=== PATIENT | male | born 1960 | race Two or more races ===

== ENCOUNTER → 2023-01-05 | Outpatient (CLI) | payer OTHER ==
[2023-01-05 09:34] LABS: Anion Gap 7 (5-15); Carbon Dioxide 28 mmol/L (20-30); Chloride 104 mmol/L (98-107); Potassium 4.6 mmol/L (3.5-5.1); Sodium 139 mmol/L (136-145)
[2023-01-05 09:35] LABS: Calcium 9.5 mg/dL (8.5-10.1)
[2023-01-05 09:39] LABS: Glucose 181 mg/dL (74-106)
[2023-01-05 09:40] LABS: BUN/Creatinine Ratio 14.4 (10.0-20.0); Blood Urea Nitrogen 15 mg/dL (9-23)
== END | disposition home or self-care (01) ==
LOC: LAB 09:10
PROVIDERS: ATTEND Family Medicine
DX: E11.65 Type 2 diabetes mellitus with hyperglycemia (principal); E11.9 Type 2 diabetes mellitus without complications
CPT/HCPCS: 36415; 80048; 82043

== ENCOUNTER 2023-06-07 10:08 | Emergency (ER) | payer OTHER, MEDICAID ==
[~2023-06-07] VITALS: Ht 177.8 cm; Wt 86.1 kg
[2023-06-07 11:15] VITALS: BP 124/82; PULSE 89; RESP 16; TEMP 97.8; O2SAT 99
[2023-06-07] MEDS: LACTULOSE 20Gm/30ML SOLN PO ONE (11:40)
[2023-06-07] MEDS ORDERED: DICY10CA PO (12:59)
[2023-06-07] MEDS ORDERED: LACT10SO3 PO (12:59)
== END 2023-06-07 13:14 | disposition home or self-care (01) ==
LOC: ER 10:08
DX: N40.0 Benign prostatic hyperplasia without lower urinary tract symptoms (principal); N28.89 Other specified disorders of kidney and ureter; K59.00 Constipation, unspecified; I10 Essential (primary) hypertension; Z79.899 Other long term (current) drug therapy
CPT/HCPCS: 74176

== ENCOUNTER 2023-06-08 12:45 | Inpatient (IN) | payer OTHER, MEDICAID ==
[~2023-06-08] VITALS: Ht 180.3 cm; Wt 84.0 kg
[~2023-06-08 12:45] MED LIST: DICY10CA PO; LACT10SO3 PO
[2023-06-08 14:23] LABS: Basophils # (auto) 0 10 ^3/uL (0-0.2); Basophils % (auto) 0.2 % (0.0-2.0); Eosinophils # (auto) 0 10 ^3/uL (0-0.8); Eosinophils % (auto) 0.1 % (0.0-7.0); Mean Corpuscular Volume 81.7 fL (80.0-100.0); White Blood Cell 11.3 10^3/uL (4.4-10.8)
[2023-06-08 14:26] LABS: Hematocrit 42.3 % (41.0-53.0); Hemoglobin 13.8 g/dL (13.5-17.5); Lymphocytes # (auto) 1.4 10 ^3/uL (0.4-5.4); Mean Corpuscular Hemoglobin 26.7 pg (28.0-32.0); Mean Corpuscular Hgb Conc. 32.6 g/dL (32.0-36.0); Monocytes # (auto) 0.6 10 ^3/uL (0-1.3); Neutrophils # (auto) 9.4 10 ^3/uL (1.6-8.6); Neutrophils % (auto) 82.7 % (37.0-80.0); Nucleated Red Blood Cells % 0.1 %; Red Blood Cells 5.17 10^6/uL (4.5-5.90); Red Cell Distribution Width 15.4 % (11.8-14.3)
[2023-06-08 14:33] LABS: Urine Bacteria NONE SEEN /hpf (None Seen); Urine Blood Negative /uL (Negative); Urine Clarity Clear (Clear); Urine Color Colorless (Yellow); Urine Mucus FEW (None Seen); Urine Protein, UAD 2+ (Negative); Urine Specific Gravity 1.017 (1.001-1.035); Urine Urobilinogen Normal (Negative); Urine WBC 1 /hpf (0 - 3)
[2023-06-08 14:40] LABS: Alanine Aminotransferase 23 U/L (7-40); Albumin 4.7 g/dL (3.2-4.8); Alkaline Phosphatase 99 U/L (46-116); Anion Gap 9 (5-15); Aspartate Aminotransferase 22 U/L (13-40); BUN/Creatinine Ratio 17.2 (10.0-20.0); Bilirubin, Total 1.4 mg/dL (0.2-1.0); Blood Urea Nitrogen 20 mg/dL (9-23); Calcium 9.8 mg/dL (8.7-10.4); Carbon Dioxide 26 mmol/L (20-30); Chloride 102 mmol/L (98-107); Glucose 173 mg/dL (74-106); Lipase 133 U/L (12-53); Potassium 4.5 mmol/L (3.5-5.1); Sodium 137 mmol/L (136-145); Total Protein 7.6 g/dL (5.7-8.2)
[2023-06-08] MEDS: FLEET ENEMA(ADULT) 135 ML PR ONE (15:27)
[2023-06-08] MEDS ORDERED: ONDANSETRON HCL 4 MG/2 ML VIAL IV PRN (16:45)
[2023-06-08] MEDS ORDERED: DOCUSATE SOD 100 MG CAP PO PRN (16:45)
[2023-06-08] MEDS ORDERED: MORPHINE SULFATE INJ 2 MG/ml SYRG IV PRN (16:45)
[2023-06-08] MEDS ORDERED: DEXTROSE (50%) 50ML SYRG IV PRN (16:45)
[2023-06-08] MEDS: TAMSULOSIN HYDROCHLORIDE 0.4 MG CAP PO SCH (18:15)
[2023-06-08] MEDS: SODIUM CHLORIDE 0.9% 1,000 ML IV SCH (18:16)
[2023-06-08] MEDS: InsuLIN REG 1unit/0.01ml Soln (100units/ml) SC SCH (18:28)
[2023-06-08] MEDS: ACCU-CHEK COMFORT CURVE STRIP VI SCH (18:30)
[2023-06-08 21:07] VITALS: PULSE 92; O2SAT 96
[2023-06-08] MEDS: LACTULOSE 20Gm/30ML SOLN PO SCH (22:00)
[2023-06-08] MEDS: DICYCLOMINE HCL 10 MG CAP PO SCH (23:56)
[2023-06-09] MEDS ORDERED: METF-372 PO (01:06)
[2023-06-09] MEDS ORDERED: ATOR20TA50 PO (01:09)
[2023-06-09] MEDS ORDERED: AML5T PO (01:09)
[2023-06-09 06:21] LABS: Basophils # (auto) 0 10 ^3/uL (0-0.2); Basophils % (auto) 0.3 % (0.0-2.0); Eosinophils # (auto) 0.1 10 ^3/uL (0-0.8); Hemoglobin 12.4 g/dL (13.5-17.5)
[2023-06-09 06:27] LABS: Eosinophils % (auto) 1.1 % (0.0-7.0); Hematocrit 37.1 % (41.0-53.0); Lymphocytes % (auto) 22.3 % (10.0-50.0); Mean Corpuscular Hemoglobin 27.1 pg (28.0-32.0); Mean Corpuscular Hgb Conc. 33.4 g/dL (32.0-36.0); Mean Corpuscular Volume 81.2 fL (80.0-100.0); Monocytes # (auto) 0.9 10 ^3/uL (0-1.3); Monocytes % (auto) 10.1 % (0.0-12.0); Neutrophils # (auto) 5.9 10 ^3/uL (1.6-8.6); Neutrophils % (auto) 66.2 % (37.0-80.0); Nucleated Red Blood Cells % 0.1 %; Red Blood Cells 4.57 10^6/uL (4.5-5.90); Red Cell Distribution Width 15.5 % (11.8-14.3); White Blood Cell 8.9 10^3/uL (4.4-10.8)
[2023-06-09 06:33] LABS: Alanine Aminotransferase 15 U/L (7-40); Alkaline Phosphatase 83 U/L (46-116); Anion Gap 7 (5-15); Aspartate Aminotransferase 20 U/L (13-40); BUN/Creatinine Ratio 14.5 (10.0-20.0); Blood Urea Nitrogen 17 mg/dL (9-23); Calcium 9.1 mg/dL (8.7-10.4); Carbon Dioxide 27 mmol/L (20-30); Chloride 105 mmol/L (98-107); Glucose 142 mg/dL (74-106); Lipase 65 U/L (12-53); Potassium 3.8 mmol/L (3.5-5.1); Sodium 139 mmol/L (136-145)
[2023-06-09 06:34] LABS: Bilirubin, Total 1.5 mg/dL (0.2-1.0); Total Protein 6.9 g/dL (5.7-8.2)
[2023-06-09 08:06] LABS: PSA Free 6.44 ng/mL; Prostate Specific Antigen 12.6 ng/mL (0.0-4.0)
[2023-06-09 09:00] VITALS: BP 121/83; PULSE 69; RESP 16; TEMP 98.2; O2SAT 97
[2023-06-09] MEDS: POLYETHYLENE GLYCOL 17 GM PWDR PO SCH (10:18)
[2023-06-09 13:00] VITALS: BP 139/84; PULSE 72; RESP 16; TEMP 98; O2SAT 95
[2023-06-09] MEDS: FINASTERIDE 5 MG TAB PO SCH (14:14)
[2023-06-09] MEDS ORDERED: CIPR-173 PO (14:51)
[2023-06-09] MEDS ORDERED: FINA5TAB4 PO (14:51)
[2023-06-09] MEDS ORDERED: LACT10SO3 PO (14:51)
[2023-06-09] MEDS ORDERED: TAMS0.4C36 PO (14:51)
[2023-06-09 17:00] VITALS: BP 136/86; PULSE 89; RESP 14; TEMP 98.1; O2SAT 96
[2023-06-09 17:31] VITALS: BP 121/83; PULSE 69; RESP 16; TEMP 36.8; O2SAT 99
== END 2023-06-09 18:50 | disposition home or self-care (01) | DRG 725 ==
LOC: ER 12:45 → OVERFLOW 16:53 → WEST WING 16:53
PROVIDERS: ADMIT Nurse Practitioner Family; ATTEND Nurse Practitioner Family
DX: N40.1 Benign prostatic hyperplasia with lower urinary tract symptoms (principal); K85.90 Acute pancreatitis without necrosis or infection, unspecified; I10 Essential (primary) hypertension; R33.8 Other retention of urine; E11.65 Type 2 diabetes mellitus with hyperglycemia; N19 Unspecified kidney failure; K59.00 Constipation, unspecified
CPT/HCPCS: 36415; 74176; 80053; 81001; 82962; 83036; 83690; 84154; 85025; G0378; J1815

== ENCOUNTER 2023-06-11 21:24 | Emergency (ER) | payer OTHER, MEDICAID ==
[~2023-06-11] VITALS: Ht 180.3 cm; Wt 86.4 kg
[~2023-06-11 21:24] MED LIST changes: +AML5T PO; +ATOR20TA50 PO; +CIPR-173 PO; -DICY10CA PO; +FINA5TAB4 PO; +METF-372 PO; +TAMS0.4C36 PO
[2023-06-11 22:51] LABS: Urine Bacteria FEW /hpf (None Seen); Urine Blood 3+ /uL (Negative); Urine Clarity HAZY (Clear); Urine Color Yellow (Yellow); Urine Mucus FEW (None Seen); Urine Protein, UAD 3+ (Negative); Urine Specific Gravity 1.025 (1.001-1.035); Urine Urobilinogen Normal (Negative); Urine WBC 25 /hpf (0 - 3); Urine pH 5.5 (5.0-8.0)
[2023-06-12 01:07] VITALS: BP 116/76; PULSE 72; RESP 16; TEMP 98.1; O2SAT 99
== END 2023-06-12 01:35 | disposition left against medical advice (07) ==
LOC: ER 21:24
DX: R33.9 Retention of urine, unspecified (principal); Z53.21 Procedure and treatment not carried out due to patient leaving prior to being seen by health care provider
CPT/HCPCS: 81001; 87086

== ENCOUNTER 2023-06-12 12:29 | Emergency (ER) | payer OTHER, MEDICAID ==
[~2023-06-12] VITALS: Ht 180.3 cm; Wt 84.2 kg
[2023-06-12 12:36] VITALS: BP 105/74; PULSE 103; RESP 18; TEMP 97.3; O2SAT 99
== END 2023-06-12 14:57 | disposition home or self-care (01) ==
LOC: ER 12:29
DX: T83.9XXD Unspecified complication of genitourinary prosthetic device, implant and graft, subsequent encounter (principal); I10 Essential (primary) hypertension; E11.9 Type 2 diabetes mellitus without complications; Z46.6 Encounter for fitting and adjustment of urinary device; Z79.899 Other long term (current) drug therapy; Y92.89 Other specified places as the place of occurrence of the external cause

== ENCOUNTER 2023-10-28 01:47 | Inpatient (IN) | payer OTHER, MEDICAID ==
[~2023-10-28] VITALS: Ht 180.3 cm; Wt 84.0 kg
[~2023-10-28 01:47] MED LIST changes: -ATOR20TA50 PO; +ATOR40TA52 PO; -CIPR-173 PO; +DICY10CA PO; +GLIP10TA9 PO
[2023-10-28 10:07] VITALS: BP 129/80; PULSE 81; RESP 16; TEMP 98.8; O2SAT 98
[2023-10-28 11:06] VITALS: BP 129/80; PULSE 84; RESP 18; TEMP 99.6; O2SAT 98; O2SAT 99
[2023-10-28 11:09] VITALS: BP 129/80; PULSE 84; RESP 18; TEMP 99.6; O2SAT 99
[2023-10-28] MEDS ORDERED: LOSA-534 PO (13:46)
[2023-10-28] MEDS ORDERED: DEXTROSE (50%) 50ML SYRG IV PRN (14:00)
[2023-10-28] MEDS: SODIUM CHLORIDE 0.9% 1,000 ML IV SCH (14:25)
[2023-10-28] MEDS: cefTRIAXone 1GM/50ML D5W 50 ML IV ONE (14:33)
[2023-10-28 14:34] LABS: Basophils # (auto) 0 10 ^3/uL (0-0.2); Basophils % (auto) 0.1 % (0.0-2.0); Eosinophils # (auto) 0 10 ^3/uL (0-0.8); Hemoglobin 12.7 g/dL (13.5-17.5); Monocytes # (auto) 0.6 10 ^3/uL (0-1.3)
[2023-10-28 14:36] LABS: Hematocrit 37.5 % (41.0-53.0); Lymphocytes % (auto) 6.5 % (10.0-50.0); Mean Corpuscular Hemoglobin 27.1 pg (28.0-32.0); Mean Corpuscular Hgb Conc. 33.9 g/dL (32.0-36.0); Monocytes % (auto) 3.7 % (0.0-12.0); Neutrophils % (auto) 89.7 % (37.0-80.0); Red Blood Cells 4.69 10^6/uL (4.5-5.90); Red Cell Distribution Width 15.6 % (11.8-14.3); White Blood Cell 15.6 10^3/uL (4.4-10.8)
[2023-10-28 14:50] LABS: Alanine Aminotransferase 30 U/L (7-40); Albumin 4.1 g/dL (3.2-4.8); Alkaline Phosphatase 96 U/L (46-116); Anion Gap 9 (5-15); Aspartate Aminotransferase 19 U/L (13-40); BUN/Creatinine Ratio 8.5 (10.0-20.0); Bilirubin, Total 2.1 mg/dL (0.2-1.0); Blood Urea Nitrogen 9 mg/dL (9-23); Calcium 9.5 mg/dL (8.7-10.4); Carbon Dioxide 25 mmol/L (20-30); Chloride 104 mmol/L (98-107); Cholesterol 88 mg/dL (< 200); Glucose 134 mg/dL (74-106); HDL Cholesterol 39 mg/dL (40-59); LDL Cholesterol 31 mg/dL (< 100); Potassium 3.4 mmol/L (3.5-5.1); Sodium 138 mmol/L (136-145); Triglycerides 92 mg/dL (< 150)
[2023-10-28 16:48] LABS: Urine Bacteria None Seen /hpf (None Seen)
[2023-10-28 16:52] LABS: Urine Blood 2+ /uL (Negative); Urine Clarity Clear (Clear); Urine Color Light-Yellow (Yellow); Urine Protein, UAD 2+ (Negative); Urine Specific Gravity 1.014 (1.001-1.035); Urine Urobilinogen Normal (Negative); Urine WBC 4 /hpf (0 - 3); Urine pH 6.5 (5.0-9.0)
[2023-10-28] MEDS: ACCU-CHEK COMFORT CURVE STRIP VI SCH (16:52)
[2023-10-28] MEDS: InsuLIN REG 1unit/0.01ml Soln (100units/ml) SC SCH (16:53)
[2023-10-28] MEDS: POTASSIUM CHL 20 Meq TABLET PO ONE (16:57)
[2023-10-28 20:00] VITALS: PULSE 83; PULSE 86; RESP 20; O2SAT 95
[2023-10-28 21:00] VITALS: BP 140/73; PULSE 86; RESP 20; TEMP 98.6; O2SAT 95
[2023-10-29] VITALS (8 sets, daily range): BP systolic 107–144; BP diastolic 70–87; PULSE 75–102; RESP 16–18; TEMP 98–101.7; O2SAT 95–97
[2023-10-29] MEDS: glipiZIDE 5 MG TAB PO SCH (06:44)
[2023-10-29 07:17] LABS: Basophils # (auto) 0 10 ^3/uL (0-0.2); Basophils % (auto) 0.3 % (0.0-2.0); Eosinophils # (auto) 0 10 ^3/uL (0-0.8); Eosinophils % (auto) 0.1 % (0.0-7.0); Hematocrit 36.3 % (41.0-53.0); Lymphocytes # (auto) 1.1 10 ^3/uL (0.4-5.4); Lymphocytes % (auto) 9.2 % (10.0-50.0); Mean Corpuscular Hemoglobin 26.4 pg (28.0-32.0); Mean Corpuscular Volume 80.1 fL (80.0-100.0); Monocytes # (auto) 0.8 10 ^3/uL (0-1.3); Monocytes % (auto) 7.2 % (0.0-12.0); Neutrophils # (auto) 9.6 10 ^3/uL (1.6-8.6); Neutrophils % (auto) 83.2 % (37.0-80.0); Red Blood Cells 4.53 10^6/uL (4.5-5.90); Red Cell Distribution Width 15.3 % (11.8-14.3); White Blood Cell 11.5 10^3/uL (4.4-10.8)
[2023-10-29 07:51] LABS: Alanine Aminotransferase 26 U/L (7-40); Albumin 3.8 g/dL (3.2-4.8); Alkaline Phosphatase 91 U/L (46-116); Anion Gap 7 (5-15); Aspartate Aminotransferase 18 U/L (13-40); BUN/Creatinine Ratio 9.7 (10.0-20.0); Blood Urea Nitrogen 12 mg/dL (9-23); Calcium 9.2 mg/dL (8.7-10.4); Carbon Dioxide 25 mmol/L (20-30); Chloride 103 mmol/L (98-107); Glucose 160 mg/dL (74-106); Sodium 135 mmol/L (136-145)
[2023-10-29 07:52] LABS: Bilirubin, Total 1.3 mg/dL (0.2-1.0); Total Protein 6.5 g/dL (5.7-8.2)
[2023-10-29] MEDS: cefTRIAXone 1GM/50ML D5W 50 ML IV SCH (10:34)
[2023-10-29] MEDS: TAMSULOSIN HYDROCHLORIDE 0.4 MG CAP PO SCH (10:38)
[2023-10-29] MEDS: FINASTERIDE 5 MG TAB PO SCH (10:38)
[2023-10-29] MEDS: amLODIPine BESYLATE 5 MG TAB PO SCH (10:39)
[2023-10-29] MEDS: ATORVASTATIN 20 MG TAB PO SCH (10:40)
[2023-10-30] VITALS (7 sets, daily range): BP systolic 101–143; BP diastolic 58–87; PULSE 63–84; RESP 17–20; TEMP 97.6–98.8; O2SAT 95–98
[2023-10-30 05:21] LABS: Basophils # (auto) 0 10 ^3/uL (0-0.2); Eosinophils # (auto) 0.1 10 ^3/uL (0-0.8); Hematocrit 37.2 % (41.0-53.0); Mean Corpuscular Volume 79.4 fL (80.0-100.0); Red Blood Cells 4.68 10^6/uL (4.5-5.90); Red Cell Distribution Width 15.2 % (11.8-14.3)
[2023-10-30 05:23] LABS: Basophils % (auto) 0.4 % (0.0-2.0); Eosinophils % (auto) 1.7 % (0.0-7.0); Hemoglobin 12.9 g/dL (13.5-17.5); Lymphocytes # (auto) 1.2 10 ^3/uL (0.4-5.4); Lymphocytes % (auto) 16.6 % (10.0-50.0); Mean Corpuscular Hemoglobin 27.5 pg (28.0-32.0); Mean Corpuscular Hgb Conc. 34.6 g/dL (32.0-36.0); Monocytes # (auto) 0.6 10 ^3/uL (0-1.3); Monocytes % (auto) 8.7 % (0.0-12.0); Neutrophils # (auto) 5.1 10 ^3/uL (1.6-8.6); Neutrophils % (auto) 72.6 % (37.0-80.0); Nucleated Red Blood Cells % 0.1 %; White Blood Cell 7.1 10^3/uL (4.4-10.8)
[2023-10-30 05:40] LABS: Alanine Aminotransferase 29 U/L (7-40); Albumin 3.7 g/dL (3.2-4.8); Alkaline Phosphatase 100 U/L (46-116); Anion Gap 9 (5-15); Aspartate Aminotransferase 26 U/L (13-40); BUN/Creatinine Ratio 13.3 (10.0-20.0); Blood Urea Nitrogen 15 mg/dL (9-23); Calcium 8.9 mg/dL (8.7-10.4); Carbon Dioxide 25 mmol/L (20-30); Chloride 103 mmol/L (98-107); Glucose 139 mg/dL (74-106); Potassium 3.4 mmol/L (3.5-5.1); Sodium 137 mmol/L (136-145)
[2023-10-30 05:41] LABS: Total Protein 6.9 g/dL (5.7-8.2)
[2023-10-30] MEDS: POTASSIUM CHL 20 Meq TABLET PO ONE (09:21)
[2023-10-31 05:00] VITALS: BP 119/82; PULSE 81; RESP 18; TEMP 98.6; O2SAT 98
[2023-10-31 06:43] LABS: Anion Gap 8 (5-15); Basophils # (auto) 0 10 ^3/uL (0-0.2); Basophils % (auto) 0.3 % (0.0-2.0); Calcium 9.1 mg/dL (8.7-10.4); Carbon Dioxide 25 mmol/L (20-30); Chloride 105 mmol/L (98-107); Eosinophils # (auto) 0.3 10 ^3/uL (0-0.8); Eosinophils % (auto) 4.7 % (0.0-7.0); Hemoglobin 12.8 g/dL (13.5-17.5); Lymphocytes # (auto) 1.5 10 ^3/uL (0.4-5.4); Lymphocytes % (auto) 26.5 % (10.0-50.0); Mean Corpuscular Hemoglobin 26.9 pg (28.0-32.0); Mean Corpuscular Hgb Conc. 33.8 g/dL (32.0-36.0); Mean Corpuscular Volume 79.6 fL (80.0-100.0); Monocytes # (auto) 0.7 10 ^3/uL (0-1.3); Neutrophils # (auto) 3.2 10 ^3/uL (1.6-8.6); Neutrophils % (auto) 55.5 % (37.0-80.0); Potassium 3.8 mmol/L (3.5-5.1); Red Blood Cells 4.77 10^6/uL (4.5-5.90); Sodium 138 mmol/L (136-145); White Blood Cell 5.7 10^3/uL (4.4-10.8)
[2023-10-31 06:49] LABS: BUN/Creatinine Ratio 13.9 (10.0-20.0); Blood Urea Nitrogen 16 mg/dL (9-23); Glucose 141 mg/dL (74-106)
[2023-10-31 09:00] VITALS: BP 129/78; PULSE 85; RESP 16; TEMP 98.1; O2SAT 97
[2023-10-31 13:00] VITALS: BP 128/81; PULSE 73; RESP 16; TEMP 97.7; O2SAT 98
[2023-10-31 14:33] VITALS: BP 128/81; PULSE 73; RESP 16; TEMP 97.7; O2SAT 98
[2023-10-31] MEDS ORDERED: CEFP100T6 PO (15:11)
[2023-10-31 17:00] VITALS: BP 127/81; PULSE 81; RESP 16; TEMP 97.8; O2SAT 98
[2023-10-31 17:25] VITALS: BP 128/81; PULSE 73; RESP 16; TEMP 97.7; O2SAT 98
== END 2023-10-31 18:30 | disposition home or self-care (01) | DRG 872 ==
LOC: TELE-WESTW 10:08 → WEST WING 10-30 06:43
PROVIDERS: ADMIT Student in an Organized Health Care Education/Training Program; ATTEND Registered Nurse
DX: A41.9 Sepsis, unspecified organism (principal); N39.0 Urinary tract infection, site not specified; E11.9 Type 2 diabetes mellitus without complications; E78.5 Hyperlipidemia, unspecified; I10 Essential (primary) hypertension; R31.9 Hematuria, unspecified; R97.20 Elevated prostate specific antigen [PSA]; D64.9 Anemia, unspecified
CPT/HCPCS: 36415; 71045; 80048; 80053; 80061; 81001; 82962; 83036; 83605; 85025; 85610; 85730; 87040; 87081; 87086; G0378; J1815; J2250; J2405; J2704